=== PATIENT | female | born 1940 | race Caucasian/White ===

== ENCOUNTER 2016-05-22 20:22 | Observation (INO) | payer MEDICARE ==
[~2016-05-22] VITALS: Ht 165.1 cm; Wt 80.0 kg
[~2016-05-22 20:22] MED LIST: ATOR20TA PO; BAYE325T3 PO; ESTR.3 PO; LAMO150T PO; LOSA100T3 PO; MONT10 PO; OMEP20TA39 PO; PLAV75TA PO
[2016-05-22 20:25] VITALS: BP 125/66; PULSE 73; RESP 16; TEMP 98.2; O2SAT 94
[2016-05-22 20:29] VITALS: BP 124/58; PULSE 73; RESP 18; O2SAT 95
[2016-05-22] MEDS ORDERED: SODIUM CHLORID 0.9% 500 ML INJ 500 ML IV ONE ×2 (20:45→22:30)
--- NOTE | 2016-05-22 20:53 | PD ---
HPI Chief Complaint: Syncope/Near-Syncope Time Seen by Provider: 20:28 Travel History International Travel<30 days: No Contact w/Intl Traveler<30days: No Traveled to known affect area: No History of Present Illness HPI The patient is a 75 year old female who presents to the [facility] emergency department with a history of reportedly feeling ill and calling out to her just prior to arrival. When he went into check on her, she collapsed in his arms. She does have a history of seizure disorder, however he denies her having any seizure activity with this. He reports that she has had a history of syncopal events previously. She reports that the last time that she had a syncopal event was approximately 2 years ago. The patient en route to this facility reportedly had some nausea and was given Zofran 4 mg IV. The patient's blood sugar was noted to be normal prior to arrival by ambulance services. She reports that she has been eating and drinking well. She denies taking any blood pressure medication. She denies having any changes to her medication regimen recently. The patient denies having any new one-sided weakness. 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 She occasionally uses a cane to assist her with getting around. The patient denies any recent fevers, cough, congestion , neck pain, chest pain, shortness of breath, abdominal pain, vomiting, diarrhea , urinary symptoms, or other neurologic symptoms. [facility] Past Medical History Narrative Medical The patient's past medical history is significant for a history of prior stroke with residual right sided weakness, history of seizure disorder, hypertension, hyperlipidemia, acid reflux. Cancer: No High Cholesterol: Yes Cerebrovascular Accident: Yes Diabetes: No Endocrine: No Genitourinary: No Hypertension: Yes Immune Disorder: No Musculoskeletal: No Neurologic: Yes Seizures: Yes (epilepsy) Tetanus Vaccination: Unknown Influenza Vaccination: Yes ?: Not Past Surgical History Narrative Surgical The Patient's past surgical history is significant for a cholecystectomy. Cholecystectomy: Yes Other Surgery: Yes (cholecystectomy) Social History Alcohol Use: No Tobacco Use: No Substance Use: No Allergies-Medications (Allergen,Severity, Reaction): Coded Allergies: Nitroglycerin (Verified Adverse Reaction, Mild, Hypotension, 05/22/16) Penicillin (Verified Adverse Reaction, Mild, Hives, 05/22/16) Vancomycin (Verified Adverse Reaction, Mild, Hypotension, 05/22/16) Reported Meds & Prescriptions Reported Meds & Active Scripts Active Reported Atorvastatin (Atorvastatin Calcium) 20 Mg Tab 20 Mg PO HS Aspirin 81 Mg Tabdr 81 Mg PO DAILY Estradiol 0.5 Mg Tab 0.5 Mg PO DAILY Clopidogrel (Clopidogrel Bisulfate) 75 Mg Tab 75 Mg PO DAILY Montelukast (Montelukast Sodium) 10 Mg Tab 10 Mg PO HS Losartan-Hydrochlorothiazide 100-12.5 Mg Tab 1 Tab PO DAILY Omeprazole 20 Mg Tab 20.6 Mg PO DAILY Lamotrigine ER (Lamotrigine) 300 Mg Kandi 300 Mg PO DAILY Review of Systems Except as stated in HPI: all other systems reviewed are Neg General / Constitutional: No: Fever Eyes: No: Visual changes HENT: Positive: Lightheadedness, No: Headaches, Congestion Cardiovascular: No: Chest Pain or Discomfort Respiratory: No: Shortness of Breath Gastrointestinal: Positive: Nausea, No: Vomiting, Diarrhea, Abdominal Pain, Changes in Bowel Habits Genitourinary: No: Dysuria Musculoskeletal: No: Pain Skin: No Rash Neurologic: Positive: Weakness (generalized weakness), Dizziness, Syncope, No : Focal Abnormalities, Change in Mentation, Slurred Speech, Sensory Disturbance Psychiatric: No: Depression Endocrine: No: Polydipsia Hematologic/Lymphatic: No: Easy Bruising Physical Exam Narrative General: The patient is well-developed well-nourished female in no acute distress. Head and Neck exam: Head is normocephalic atraumatic. Eyes: EOMI, pupils are equal round and reactive to light. Nose: Midline septum with pink mucous membranes Mouth: Dentition unremarkable. Moist mucus membranes. Posterior oropharynx is not erythematous. No tonsillar hypertrophy. Uvula midline. Airway patent. No evidence of tongue trauma, no contusion or laceration. Neck: No palpable lymphadenopathy. No nuchal rigidity. No thyromegaly. Cardiovascular: Regular rate and rhythm without murmurs, gallops, or rubs. Lungs: Clear to auscultation bilaterally. No wheezes, rhonchi, or rales. Abdomen: Soft, without tenderness to palpation in all 4 quadrants of the abdomen. No guarding, rebound, or rigidity. Normal bowel sounds are audible. Extremities: No clubbing, cyanosis, or edema. 2+ pulses in all 4 extremities. Back: No spinous process tenderness to palpation. No costovertebral angle tenderness to palpation. Neurologic Exam: Cranial nerves 2-12 were intact on exam. Strength is 5/5 in all 4 extremities. No sensory deficits noted. Skin Exam: No rash noted. Intact skin that is warm and dry. Data Data Last Documented VS Vital Signs Date Time Temp Pulse Resp B/P Pulse Ox O2 Delivery O2 Flow Rate FiO2 05/22/16 21:29 72 18 142/76 64 18 133/79 76 18 151/72 05/22/16 21:03 99 Room Air 05/22/16 20:29 2 05/22/16 20:25 98.2 Orders Electrocardiogram (05/22/16 20:42) Complete Blood Count With Diff (05/22/16 20:42) Comprehensive Metabolic Panel (05/22/16 20:42) Creatine Kinase (Cpk) (05/22/16 20:42) Ckmb (Isoenzyme) Profile (05/22/16 20:42) Troponin I (05/22/16 20:42) B-Type Natriuretic Peptide (05/22/16 20:42) Prothrombin Time / Inr (Pt) (05/22/16 20:42) Act Partial Throm Time (Ptt) (05/22/16 20:42) Lipase (05/22/16 20:42) Urinalysis - C+S If Indicated (05/22/16 20:42) Magnesium (Mg) (05/22/16 20:42) Thyroid Stimulating Hormone (05/22/16 20:42) Chest, Single Ap (05/22/16 20:42) Ct Brain W/O Iv Contrast(Rout) (05/22/16 20:42) Iv Access Insert/Monitor (05/22/16 20:42) Ecg Monitoring (05/22/16 20:42) Oximetry (05/22/16 20:42) Orthostatic Vital Signs (05/22/16 20:44) Sodium Chlorid 0.9% 500 Ml Inj (Ns 500 M (05/22/16 20:45) Sodium Chlorid 0.9% 500 Ml Inj (Ns 500 M (05/22/16 22:30) Admit Order (Ed Use Only) (05/22/16 23:01) Place In Observation (05/22/16 ) Vital Signs (Adult) Q4H (05/22/16 23:01) Activity Oob With Assistance (05/22/16 23:01) Television Schedule Coordinator / Telemetry .CONTINUOUS (05/22/16 23:01) Intake + Output LISA.QSHIFT (05/22/16 23:01) Sodium Chlor 0.9% 1000 Ml Inj (Ns 1000 M (05/22/16 23:01) Sodium Chloride 0.9% Flush (Ns Flush) (05/22/16 23:15) Sodium Chloride 0.9% Flush (Ns Flush) (05/23/16 09:00) Ondansetron Inj (Zofran Inj) (05/22/16 23:15) Bisacodyl Supp (Dulcolax Supp) (05/22/16 23:15) Pt Request For Service (05/22/16 23:01) Scd Bilateral/Knee High LISA.BID (05/22/16 23:01) Dre Bilateral/Knee High LISA.QSHIFT (05/22/16 23:01) Acetaminophen (Tylenol) (05/22/16 23:15) Acetamin-Hydrocod 325-5 Mg (Gilsum 5-325 (05/22/16 23:15) Acetamin-Hydrocod 325-10 Mg (Gilsum 10-32 (05/22/16 23:15) Aspirin Ec (Ecotrin Ec) (05/23/16 09:00) Atorvastatin (Lipitor) (05/23/16 21:00) Clopidogrel (Plavix) (05/23/16 09:00) Montelukast (Singulair) (05/23/16 21:00) (Nf) Lamotrigine Er (05/23/16 09:00) Labs Laboratory Tests Test 05/22/16 05/22/16 20:50 23:00 White Blood Count 11.6 TH/MM3 Red Blood Count 4.70 MIL/MM3 Hemoglobin 13.9 GM/DL Hematocrit 42.5 % Mean Corpuscular Volume 90.5 FL Mean Corpuscular Hemoglobin 29.6 PG Mean Corpuscular Hemoglobin 32.8 % Concent Red Cell Distribution Width 13.4 % Platelet Count 270 TH/MM3 Mean Platelet Volume 8.4 FL Neutrophils (%) (Auto) 74.1 % Lymphocytes (%) (Auto) 17.7 % Monocytes (%) (Auto) 6.1 % Eosinophils (%) (Auto) 1.4 % Basophils (%) (Auto) 0.7 % Neutrophils # (Auto) 8.6 TH/MM3 Lymphocytes # (Auto) 2.0 TH/MM3 Monocytes # (Auto) 0.7 TH/MM3 Eosinophils # (Auto) 0.2 TH/MM3 Basophils # (Auto) 0.1 TH/MM3 CBC Comment DIFF FINAL Differential Comment Prothrombin Time 10.9 SEC Prothromb Time International 1.0 RATIO Ratio Activated Partial 23.3 SEC Thromboplast Time Sodium Level 141 MEQ/L Potassium Level 3.7 MEQ/L Chloride Level 105 MEQ/L Carbon Dioxide Level 26.9 MEQ/L Anion Gap 9 MEQ/L Blood Urea Nitrogen 18 MG/DL Creatinine 1.16 MG/DL Estimat Glomerular Filtration 46 ML/MIN Rate Random Glucose 92 MG/DL Calcium Level 8.1 MG/DL Magnesium Level 2.1 MG/DL Total Bilirubin 0.5 MG/DL Aspartate Amino Transf 16 U/L (AST/SGOT) Alanine Aminotransferase 17 U/L (ALT/SGPT) Alkaline Phosphatase 83 U/L Total Creatine Kinase 62 U/L Troponin I LESS THAN 0.02 NG/ML B-Type Natriuretic Peptide 9 PG/ML Total Protein 5.9 GM/DL Albumin 3.0 GM/DL Lipase 121 U/L Thyroid Stimulating Hormone 5.310 uIU/ML 3rd Gen Urine Color YELLOW Urine Turbidity CLEAR Urine pH 6.0 Urine Specific [place] 1.013 Urine Protein NEG mg/dL Urine Glucose (UA) NEG mg/dL Urine Ketones NEG mg/dL Urine Occult Blood NEG Urine Nitrite NEG Urine Bilirubin NEG Urine Urobilinogen LESS THAN 2.0 MG/DL Urine Leukocyte Esterase MOD Urine RBC 1 /hpf Urine WBC 11 /hpf Urine Squamous Epithelial 2 /hpf Cells Urine Bacteria RARE /hpf Microscopic Urinalysis Comment CULTURE INDICATED MDM Medical Decision Making Medical Screen Exam Complete: Yes Emergency Medical Condition: Yes Medical Record Reviewed: Yes Interpretation(s) Last Impressions Head CT 05/22/162041 Signed Impressions: Service Date/Time: Sunday, May 22, 2016 21:00 - CONCLUSION: No acute findings. Diffuse ischemic changes supratentorial brain there are similar to prior examination of May 2014. Jesus Kim MD Chest X-Ray 05/22/162041 Signed Impressions: Service Date/Time: Sunday, May 22, 2016 20:55 - CONCLUSION: The lungs are clear. Jesus Kim MD Differential Diagnosis Vasovagal syncope, versus cardiac arrhythmia, versus seizure activity, versus dehydration, versus orthostasis Narrative Course During the course of the patients emergency department visit, the patients history, examination, and differential diagnosis were reviewed with the patient. The patient had IV access obtained and blood work sent for analysis. The patient was placed on a automatic dry starch operator with oximetry and blood pressure monitoring. An EKG was done on arrival. Orthostatic vital signs were ordered. The patient's EKG shows a sinus rhythm, nonspecific T-wave abnormalities, heart rate [address] segment elevation, QTC 420 ms, QRS 87 ms. Orthostatic vital signs were negative. The patient was provided normal saline a 500 mL bolus 1. The patients laboratory studies were reviewed and remarkable for a white count of 11.6, hemoglobin 13.9, platelets 270 with 74.1 neutrophils. CMP was remarkable for creatinine 1.16 which is increased compared to previously, calcium 8.1, CPK 62, troponin I less than 0.02, BNP 9, total protein 5.9, TSH 5.31, lipase 121, INR 1.0, urinalysis shows moderate leukocyte esterase 11 wbc' s only 2 squamous epithelial cells, rare bacteria noted, culture indicated. Radiology studies were reviewed and remarkable for a chest x-ray that showed no acute abnormality. CT scan of the brain shows no acute findings, diffuse ischemic changes in the, supratentorial brain, findings are similar to prior examination of the great 2014. The patients results were discussed with the patient, including the plan of care. I explained that further testing and/ or monitoring is indicated based on the patients history, examination, and/ or laboratory findings. Therefore, I recommended admission for additional evaluation. The patient was admitted to the hospital in stable condition and [facility] Unfortunately as I went in to discuss the patient's plan for admission, the patient reported that she was feeling improved and would like to go home. I explained that several abnormalities have been noted including an elevated TSH, urinary tract infection, and elevated creatinine compared to previously which would suggest dehydration which can contribute to her syncopal event. I explained that I would like to admit her for IV fluids and further evaluation. The patient again reports that she feels well and would like to go home. The patient elected to leave AGAINST MEDICAL ADVICE. AMA: The risks of leaving against medical advice without further evaluation treatment were discussed with the patient. These risks include cardiac dysfunction, cardiac dysrhythmia, possible heart attack, possible stroke or . The patient indicated understanding of these risks and appeared to have the capacity to make this decision. Physician Communication Physician Communication The patient's case was discussed with Dr. Mathews we did agree to admit the patient for further evaluation and treatment at this time. Diagnosis Primary Impression: Syncope and collapse Additional Impressions: Urinary tract infection Qualified Code: N30.00 - Acute cystitis without hematuria Elevated TSH Admitting Information Admitting Physician Requests: Admit Referrals: Primary Care Physician 2 days Med/Other Pt SpecificInfo: Prescription(s) given Scripts Nitrofurantoin Monohydrate Macrocrystals (Macrobid)100 Mg Qjs112 Mg PO BID 10 Days Ref 0 Prov:Courtney Mayen MD 05/23/16 Disposition: 07 AGAINST MEDICAL ADVICE Condition: Stable Courtney Mayen MD May 22, 2016 20:52
[2016-05-22 21:03] VITALS: RESP 18; O2SAT 99
[2016-05-22] MEDS ORDERED: CLOP75TA PO (21:10)
[2016-05-22] MEDS ORDERED: ATOR20TA15 PO (21:10)
[2016-05-22] MEDS ORDERED: ESTR0.5T PO (21:10)
[2016-05-22] MEDS ORDERED: LAMO300T PO (21:10)
[2016-05-22] MEDS ORDERED: OMEP20TA PO (21:10)
[2016-05-22] MEDS ORDERED: LOSA100T3 PO (21:10)
[2016-05-22] MEDS ORDERED: MONT10TA4 PO (21:10)
[2016-05-22] MEDS ORDERED: ASPI1TAB69 PO (21:10)
--- NOTE | 2016-05-22 21:21 | RADRPT ---
EXAM DATE/TIME: 05/22/2016 20:55 [facility] COMPARISON: CHEST SINGLE AP, May 30, 2014, 23:51. INDICATIONS : Cough. MEDICAL HISTORY : None. SURGICAL HISTORY : None. ENCOUNTER: Initial ACUITY: 1 day PAIN SCORE: 0/10 LOCATION: Bilateral chest FINDINGS: A single view of the chest demonstrates the lungs to be symmetrically aerated without evidence of mas s, infiltrate or effusion. The cardiomediastinal contours are unremarkable. Osseous structures are intact. CONCLUSION: The lungs are clear. Jesus Kim MD on May 22, 2016 at 21:19 Board Certified Radiologist. This report was verified electronically.
[2016-05-22 21:23] LABS: AUTOMATED NEUTROPHIL # 8.6 TH/MM3 (1.8-7.7); BASOPHIL # 0.1 TH/MM3 (0-0.2); BASOPHIL % 0.7 % (0.0-2.0); EOSINOPHIL # 0.2 TH/MM3 (0-0.4); EOSINOPHIL % 1.4 % (0.0-4.0); HEMATOCRIT 42.5 % (35.0-46.0); HEMO FLAGS DIFF FINAL; LYMPH % 17.7 % (9.0-44.0); MEAN CELL VOLUME 90.5 FL (80.0-100.0); MEAN CORPUSCULAR HEMOGLOBIN 29.6 PG (27.0-34.0); MEAN CORPUSCULAR HGB CONC 32.8 % (32.0-36.0); MONO % 6.1 % (0.0-8.0); NEUT % 74.1 % (16.0-70.0); PLATELET COUNT 270 TH/MM3 (150-450); RED CELL DISTRIBUTION WIDTH 13.4 % (11.6-17.2); WHITE BLOOD COUNT 11.6 TH/MM3 (4.0-11.0)
[2016-05-22 21:29] VITALS: BP_SYST 133; BP_SYST 142; BP_SYST 151; BP_DIAS 72; BP_DIAS 76; BP_DIAS 79; RESP 18
[2016-05-22 21:38] LABS: APTT (PATIENT) 23.3 SEC (24.3-30.1); PROTHROMBIN TIME - PATIENT 10.9 SEC (9.8-11.6)
[2016-05-22 21:41] LABS: ANION GAP 9 MEQ/L (5-15); AST (GOT) 16 U/L (15-37); BICARBONATE 26.9 MEQ/L (21.0-32.0); BLOOD UREA NITROGEN 18 MG/DL (7-18); CHLORIDE 105 MEQ/L (98-107); GLOMERULAR FILTRATION RATE 46 ML/MIN (>89); MAGNESIUM 2.1 MG/DL (1.5-2.5); POTASSIUM 3.7 MEQ/L (3.5-5.1); SODIUM (NA) 141 MEQ/L (136-145)
--- NOTE | 2016-05-22 21:43 | RADRPT ---
EXAM DATE/TIME: 05/22/2016 21:00 [facility] COMPARISON: CT BRAIN W/O CONTRAST, May 31, 2014, 0:02. INDICATIONS : Altered mental status. RADIATION DOSE: 36.05 CTDIvol (mGy) MEDICAL HISTORY : Seizures. Hypertension. CVA. SURGICAL HISTORY : Cholecystectomy. ENCOUNTER: Initial ACUITY: 1 day PAIN SCALE: 0/10 LOCATION: cranial TECHNIQUE: Multiple contiguous axial images were obtained of the head. Using automated exposure control and adj ustment of the mA and/or kV according to patient size, radiation dose was kept as low as reasonably a chievable to obtain optimal diagnostic quality images. FINDINGS: CEREBRUM: Ventricles are mildly prominent. There is decreased attenuation of periventricular white matter, mor e prominent left frontal and left carnes radiata on the right. The appearance is characteristic of i schemic change. No evidence of acute infarction, mass, or blood products. No extra-axial fluid alexa ections. POSTERIOR FOSSA: The cerebellum and brainstem are intact. The 4th ventricle is midline. The cerebellopontine angle i s unremarkable. EXTRACRANIAL: The visualized portion of the orbits is intact. SKULL: The calvaria is intact. No evidence of skull fracture. CONCLUSION: No acute findings. Diffuse ischemic changes supratentorial brain there are similar to prior examinat ion of May 2014. Jesus Kim MD on May 22, 2016 at 21:40 Board Certified Radiologist. This report was verified electronically.
[2016-05-22 21:54] LABS: ALKALINE PHOSPHATASE 83 U/L (45-117); ALT (GPT) 17 U/L (10-53); TOTAL BILIRUBIN ADULT 0.5 MG/DL (0.2-1.0)
[2016-05-22 21:57] LABS: CREATINE KINASE 62 U/L (26-192)
[2016-05-22] MEDS ORDERED: SODIUM CHLOR 0.9% 1000 ML INJ 1,000 ML IV SCH (23:01)
--- NOTE | 2016-05-22 23:04 | HHI.HP ---
[facility] Non-Staff Admission Diagnosis Syncope, mild dehydration, elevated TSH Diagnoses: Travel History International Travel<30 Days: No Contact w/Intl Traveler <30 Da: No Traveled to Known Affected Are: No History of Present Illness . Past Family Social History Allergies: Coded Allergies: Nitroglycerin (Verified Adverse Reaction, Mild, Hypotension, 05/22/16) Penicillin (Verified Adverse Reaction, Mild, Hives, 05/22/16) Vancomycin (Verified Adverse Reaction, Mild, Hypotension, 05/22/16) Physical Exam Vital Signs Vital Signs Date Time Temp Pulse Resp B/P Pulse Ox O2 Delivery O2 Flow Rate FiO2 05/22/16 21:29 72 18 142/76 64 18 133/79 76 18 151/72 05/22/16 21:03 18 99 Room Air 05/22/16 20:29 73 18 124/58 95 Nasal Cannula 2 05/22/16 20:29 71 16 95 Nasal Cannula 2 05/22/16 20:25 98.2 73 16 125/66 94 Physical Exam GENERAL: This is a well-nourished, well-developed patient, in no apparent distress. SKIN: No rashes, ecchymoses or lesions. Cool and dry. HEAD: Atraumatic. Normocephalic. No temporal or scalp tenderness. EYES: Pupils equal round and reactive. Extraocular motions intact. No scleral icterus. No injection or drainage. ENT: Nose without bleeding, purulent drainage or septal hematoma. Throat without erythema, tonsillar hypertrophy or exudate. Uvula midline. Airway patent. NECK: Trachea midline. No JVD or lymphadenopathy. Supple, nontender, no meningeal signs. CARDIOVASCULAR: Regular rate and rhythm without murmurs, gallops, or rubs. RESPIRATORY: Clear to auscultation. Breath sounds equal bilaterally. No wheezes , rales, or rhonchi. GASTROINTESTINAL: Abdomen soft, non-tender, nondistended. No hepato-splenomegaly , or palpable masses. No guarding. MUSCULOSKELETAL: Extremities without clubbing, cyanosis, or edema. No joint tenderness, effusion, or edema noted. No calf tenderness. Negative Homans sign bilaterally. NEUROLOGICAL: Awake and alert. Cranial nerves II through XII intact. Motor and sensory grossly within normal limits. Five out of 5 muscle strength in all muscle groups. Normal speech. Laboratory Laboratory Tests Test 05/22/16 20:50 White Blood Count 11.6 Red Blood Count 4.70 Hemoglobin 13.9 Hematocrit 42.5 Mean Corpuscular Volume 90.5 Mean Corpuscular Hemoglobin 29.6 Mean Corpuscular Hemoglobin 32.8 Concent Red Cell Distribution Width 13.4 Platelet Count 270 Mean Platelet Volume 8.4 Neutrophils (%) (Auto) 74.1 Lymphocytes (%) (Auto) 17.7 Monocytes (%) (Auto) 6.1 Eosinophils (%) (Auto) 1.4 Basophils (%) (Auto) 0.7 Neutrophils # (Auto) 8.6 Lymphocytes # (Auto) 2.0 Monocytes # (Auto) 0.7 Eosinophils # (Auto) 0.2 Basophils # (Auto) 0.1 CBC Comment DIFF FINAL Differential Comment Prothrombin Time 10.9 Prothromb Time International 1.0 Ratio Activated Partial 23.3 Thromboplast Time Sodium Level 141 Potassium Level 3.7 Chloride Level 105 Carbon Dioxide Level 26.9 Anion Gap 9 Blood Urea Nitrogen 18 Creatinine 1.16 Estimat Glomerular Filtration 46 Rate Random Glucose 92 Calcium Level 8.1 Magnesium Level 2.1 Total Bilirubin 0.5 Aspartate Amino Transf 16 (AST/SGOT) Alanine Aminotransferase 17 (ALT/SGPT) Alkaline Phosphatase 83 Total Creatine Kinase 62 Troponin I LESS THAN 0.02 B-Type Natriuretic Peptide 9 Total Protein 5.9 Albumin 3.0 Lipase 121 Thyroid Stimulating Hormone 5.310 3rd Gen Result Diagram: 05/22/16204905/22/162049 Assessment and Plan Assessment and Plan ....... Mily Mathews MD May 22, 2016 23:04
[2016-05-22] MEDS ORDERED: BISACODYL 10 MG SUPP PR PRN (23:15)
[2016-05-22] MEDS ORDERED: ONDANSETRON HCL 4 MG/2 ML VIAL IVP PRN (23:15)
[2016-05-22] MEDS ORDERED: ACETAMINOPHEN 325 MG TAB PO PRN (23:15)
[2016-05-22] MEDS ORDERED: SODIUM CHLORIDE 0.9% FLUSH 5 ML FLUSH FLUSH PRN (23:15)
[2016-05-22] MEDS ORDERED: ACETAMINOPHEN/HYDROcodone 325 MG/5 MG TAB PO PRN (23:15)
[2016-05-22] MEDS ORDERED: ACETAMINOPHEN/HYDROcodone 325 MG/10 MG TAB PO PRN (23:15)
[2016-05-22 23:34] LABS: BACTERIA, URINE RARE /hpf; BLOOD, URINE NEG (NEG); COMMENT (UR) CULTURE INDICATED; CULTURE IF INDICATED CULTURE INDICATED; GLUCOSE,URINE NEG (NEG); KETONE, URINE NEG (NEG); NITRITE,URINE NEG (NEG); SQUAMOUS EPITHELIAL CELL URINE 2 /hpf (0-5); URINE COLOR YELLOW (YELLW/STRAW)
[2016-05-23] MEDS ORDERED: MACR100C2 PO (00:07)
--- NOTE | 2016-05-23 06:12 | EKG ---
Date Performed: 05/22/2016 Time Performed: 20:29:34 PTAGE: 75 years EKG: Sinus rhythm NONSPECIFIC T-WAVE ABNORMALITY BORDERLINE ECG NO PREVIOUS TRACING DOCTOR: Merlin Tai Interpretating Date/Time 05/23/2016 06:10:05
[2016-05-23] MEDS ORDERED: ASPIRIN EC 81 MG TABEC PO SCH (09:00)
[2016-05-23] MEDS ORDERED: SODIUM CHLORIDE 0.9% FLUSH 5 ML FLUSH FLUSH SCH (09:00)
[2016-05-23] MEDS ORDERED: CLOPIDOGREL 75 MG TAB PO SCH (09:00)
[2016-05-23] MEDS ORDERED: LAMOTRIGINE 300 MG PO SCH (09:00)
[2016-05-23] MEDS ORDERED: MONTELUKAST SODIUM 10 MG TAB PO SCH (21:00)
[2016-05-23] MEDS ORDERED: ATORVASTATIN 20 MG TAB PO SCH (21:00)
== END 2016-05-23 00:08 | disposition left against medical advice (07) ==
LOC: NEPE 20:22 → NEDA 23:03
PROVIDERS: ADMIT Hospitalist; ATTEND Hospitalist
DX: R55 Syncope and collapse (principal); N30.00 Acute cystitis without hematuria; G40.909 Epilepsy, unspecified, not intractable, without status epilepticus; I10 Essential (primary) hypertension; I69.351 Hemiplegia and hemiparesis following cerebral infarction affecting right dominant side; R53.1 Weakness; K21.9 Gastro-esophageal reflux disease without esophagitis; R11.0 Nausea; E78.5 Hyperlipidemia, unspecified
CPT/HCPCS: 70450; 71010; 80053; 81001; 82550; 83690; 83735; 83880; 84443; 84484; 85025; 85610; 85730; 87086; 93005; 96360; 99285; G0378; J7040